=== PATIENT | male | born 1935 | race Caucasian/White ===

== ENCOUNTER 2020-08-21 10:18 | Outpatient (CLI) | payer MEDICARE, SELFPAY ==
--- NOTE | ~2020-08-21 | NM_ITS ---
EXAMINATION: NM bone scan whole body DATE: 08/21/2020 13:49 INDICATION: Malignant neoplasm of the prostate TECHNIQUE: 18.4 mCi Tc-99m HDP was administered intravenously. Delayed whole-body scintigrams were o btained. COMPARISON: There are no relevant imaging studies at our institution. FINDINGS: Likely degenerative joint centered increased uptake at the medial compartment of the bilateral knees, at the radial aspect of the carpi, right greater than left, at the posterior aspect of the bilateral elbows, left greater than right and at the right L4-L5 facet joint. Linear band of increased uptake extending across the lumbar spine at the level of the L2-L3 disc space. Configuration favors either d egenerative disc disease or compression fracture. No other suspicious foci of abnormal bone uptake to suggest metastatic disease. IMPRESSION: 1. No lesion suspicious for metastatic disease. 2. Band of increased uptake across the lumbar spine at the level of L2-L3 most likely either related to degenerative disc disease or compression fracture. Could consider either lumbar spine radiographs, CT or MRI for confirmation as clinically indicated. Reviewed, dictated and finalized at location B. CTURAL ENGINEERING TECHNICIAN IMPRESSION: 1. No lesion suspicious for metastatic disease. 2. Band of increased uptake across the lumbar spine at the level of L2-L3 most likely either related to degenerative disc disease or compression fracture. Cou ld consider either lumbar spine radiographs, CT or MRI for confirmation as clin ically indicated.
== END 2020-08-21 10:19 | disposition home or self-care (01) ==
LOC: ANHIMG 10:28
PROVIDERS: PCP Radiology Radiation Oncology; Visit Provider Radiology Radiation Oncology
DX: C61 Malignant neoplasm of prostate (principal)
CPT/HCPCS: 78306; A9561

== ENCOUNTER 2021-12-04 06:58 | Outpatient (CLI) | payer MEDICARE, SELFPAY ==
--- NOTE | ~2021-12-04 | NM_ITS ---
EXAMINATION: NM bone scan whole body DATE: 12/04/2021 10:20 INDICATION: Leg neoplasm of the prostate. TECHNIQUE: 26.4 mCi Tc-99m HDP was administered intravenously. Delayed whole-body scintigrams were o btained. COMPARISON: Bone scan dated 08/21/2020 FINDINGS: Again seen likely degenerative foci of mild joint centered uptake at the radial aspect of the bilater al carpi and at the medial compartment of both knees. Persistent horizontal band of mild increased up take in the mid lumbar spine which could relate either compression fracture or degenerative disc dise ase. There is a vertical band of 3-4 foci of moderate increased uptake projecting over the left sacra l ala. There are also several foci of mild increased uptake involving the anterior bilateral 6, left seventh ribs and at the lateral tip of the left 11th rib. IMPRESSION: 1. New vertical band of several foci of increased uptake projecting over the left sacral ala. Differe ntial would include uptake in the left ureter, sacral insufficiency fracture, sacroiliac joint relate d uptake with the asymmetry and significant interval change patient possibility of an inflammatory or septic arthritis. There are also few new rib lesions which could also be posttraumatic in etiology. Differential for the rib and sacral lesions however would also include metastatic disease and would r ecommend correlation of at least the sacral lesions with either CT or contrast-enhanced MRI. Reviewed, dictated and finalized at location A. IMPRESSION: 1. New vertical band of several foci of increased uptake projecting over the le ft sacral ala. Differential would include uptake in the left ureter, sacral ins ufficiency fracture, sacroiliac joint related uptake with the asymmetry and sig nificant interval change patient possibility of an inflammatory or septic arthr itis. There are also few new rib lesions which could also be posttraumatic in e tiology. Differential for the rib and sacral lesions however would also include metastatic disease and would recommend correlation of at least the sacral lesi ons with either CT or contrast-enhanced MRI.
[2021-12-04 08:51] LABS: Prostate Specific Antigen < 0.1 ng/mL (< OR = 4.0)
== END 2021-12-04 06:59 | disposition home or self-care (01) ==
PROVIDERS: PCP Family Medicine Sports Medicine; Visit Provider Urology
DX: C61 Malignant neoplasm of prostate (principal)
CPT/HCPCS: 36415; 78306; 84153; A9561

== ENCOUNTER 2021-12-25 13:28 | Outpatient (CLI) | payer MEDICARE, SELFPAY ==
--- NOTE | ~2021-12-25 | MR_ITS ---
EXAMINATION: MR pelvis wo/w con DATE: 12/25/2021 15:38 INDICATION: Malignant neoplasm of prostate. TECHNIQUE: Magnetic resonance imaging (MRI) of the pelvis was performed without and with 18 mL MultiH ance intravenous contrast. COMPARISON: Bone scan 12/04/2021, 08/21/2020 FINDINGS: The prostate is mildly enlarged. There is diffuse bladder wall thickening, likely secondary to chroni c outlet obstruction. There is diverticulosis of the colon without evidence of diverticulitis. There is an umbilical hernia containing fat. There are no pathologically enlarged lymph nodes. There is no free intraperitoneal fluid. There is a left inguinal hernia containing fat. There is bone marrow nica a and enhancement in the parasymphyseal pubis, left worse than right, consistent with fractures. Ther e is bone marrow edema and enhancement involving the S3 body and bilateral sacral ala, right worse th an left, consistent with fractures. There is bone marrow edema and enhancement involving right L5 tra nsverse process cyst, consistent with a fracture. There is patchy edema and enhancement involving the iliac bones near the sacroiliac joints, the right supra-acetabular ilium, and the left inferior pubi c ramus. There is lumbar dextroscoliosis and severe spondylosis. IMPRESSION: 1. Insufficiency fractures involving the pubic bones, sacrum, and right L5 transverse process. 2. Patchy abnormal signal involving the iliac bones and left inferior pubic ramus, most likely stress reaction. Metastatic disease cannot be excluded. Reviewed, dictated and finalized at location A. IMPRESSION: 1. Insufficiency fractures involving the pubic bones, sacrum, and right L5 collado sverse process. 2. Patchy abnormal signal involving the iliac bones and left inferior pubic sheila us, most likely stress reaction. Metastatic disease cannot be excluded.
[2021-12-25 14:50] LABS: Estimated Glomerular Filt Rate 58
== END 2021-12-25 13:29 | disposition home or self-care (01) ==
PROVIDERS: PCP Family Medicine Sports Medicine; Visit Provider Urology
DX: C61 Malignant neoplasm of prostate (principal)
CPT/HCPCS: 72197; A9577